=== PATIENT | female | born 1985 | race Caucasian/White ===

== ENCOUNTER 2017-12-11 12:55 | Emergency (ER) | payer OTHER ==
[2017-12-11] MEDS ORDERED: TDAP ADULT 0.5 ML INJ (BOOSTRIX) IM ONE (13:05)
--- NOTE | 2017-12-11 13:47 | EDPHY ---
H & P Time Seen by Provider: 12/11/17 13:00 HPI/ROS: CHIEF COMPLAINT: Laceration of the left knee with direct blow, from fall while practicing skiing HISTORY OF PRESENT ILLNESS: This is a 32-year-old female who is from [place]. She was tempted take a lesson to learn had a ski at a local indoor facility that has some form of plastic material as irrigated with water to allow to minimize friction thereby she can slide down. The the plastic material is anchored by screws which evidently were extending above and that is what she actually struck when she took a fall. She describes falling forward without it was significant twisting mechanism and notes that she has pain over the anterior portion of the knee not really laterally. She has since walked both at the facility and here into the but our facility as well as the parking lot. Fortunately this was a left knee injury and she did have a automatic transmission. However with walking she did not feel any untoward laxity to the knee. It generally feels stiff and achy She does have a remote history of problems with both knees and multiple joints which she characterizes being loose. However she has never had any knee surgery. REVIEW OF SYSTEMS: Constitutional - no fevers or chills Musculoskeletal - see above Integument -see above Neurological - no numbness, tingling, or paresthesias. . Smoking Status: Never smoked Physical Exam: General Appearance: Alert, no distress. Afebrile. Extremities: The neurovascular status is intact to left lower extremity. Cap refill is intact. On the area overlying the patella there is a full -thickness wound to the anterior portion of the knee on the upper lateral area overlying the kneecap which is likely into the bursa. I have examined her leggings and indeed there is a laceration leggings although he does not appear to have any missing material. With respect to the knee itself: Collateral ligaments intact Anterior drawer negative Negative Josse's No fluid, no effusion I am able to bend the knee to 90 though it feels stiff and it makes the soft tissue swelling present overlying laceration more notable. Neurological: NV intact. Skin: Skin is intact. Warm and dry, no rashes. no lymphangitis. . Constitutional: Initial Vital Signs Temperature (C) 36.5 C 12/11/17 13:02 Heart Rate 95 12/11/17 13:02 Respiratory Rate 18 12/11/17 13:02 Blood Pressure 131/76 H 12/11/17 13:02 O2 Sat (%) 96 12/11/17 13:02 O2 Delivery Mode Room Air Allergies/Adverse Reactions: adhesive tape Allergy (Verified 12/11/17 13:01) codeine Allergy (Verified 12/11/17 13:01) hydrocodone Allergy (Verified 12/11/17 13:01) Home Medications: Medication Instructions Recorded ZYRTE 12/11/17 Medical Decision Making - Diagnostics Imaging Results: Imaging Impressions Knee X-Ray 12/11/17 13:05 Impression: 1. No definite fracture of the left knee. 2. Soft tissue swelling without definite joint effusion. ED Course/Re-evaluation: Laceration over the knee on the upper lateral pole is full-thickness however is only 1 cm and does not gape. I am concerned for contagion of the bursa thereby will go ahead and have the tech irrigate. Utilizing sterile technique and Chloraseptic prep the wound itself was anesthetized with 1% xylocaine with epinephrine. She tolerated this well. Subsequently irrigation was ensued. I have discussed the fact that it is not gaping significantly and I am concerned for infection thereby wound closure with Steri-Strips her david when increased risk and not be necessary at this point in time and will be ill advised. Structurally, I do not sign any laxity to the collateral cruciate ligaments thus would consider this to be a contusion expect prompt resolution with the next week. Therefore, there does not appear to be any internal derangement of the knee whereby it is evident that she has a contusion and laceration on the outside. Differential Diagnosis: The differential diagnosis includes but is not limited to: Fracture, Sprain, Strain, Dislocation, Nerve injury, Contusion, laceration - Data Points Medications Given: Discontinued Medications Diphtheria/Tetanus/Acell Pertussis (Boostrix) 0.5 ml IM .ONCE ONE Stop: 12/11/17 13:06 Last Admin: 12/11/17 13:58 Dose: Not Given Departure - Departure Disposition: Home, Routine, Self-Care Clinical Impression: Contusion of knee and lower leg Qualifiers: Encounter type: initial encounter Laterality: left Qualified Code(s): S80.02XA - Contusion of left knee, initial encounter Laceration of leg Qualifiers: Encounter type: initial encounter Laterality: left Qualified Code(s): S81.812A - Laceration without foreign body, left lower leg, initial encounter Condition: Good Instructions: Laceration (ED), Knee Pain (ED) Additional Instructions: Keep this clean and dry Tylenol and Advil works well together the combination: Tylenol 1000 mg and 600 mg every 8 hours as needed for the pain. Call later for follow-up with Orthopedics. Crutches as needed. Referrals: AYSE MIRANDA [Primary Care Provider] - As per Instructions Jameson Briceno MD [Medical Doctor] - As per Instructions
[2017-12-11 14:19] VITALS: BP 119/68
== END 2017-12-11 14:22 | disposition home or self-care (01) ==
LOC: CED 12:55
DX: S81.012A Laceration without foreign body, left knee, initial encounter (principal); Z23 Encounter for immunization; W10.2XXA Fall (on)(from) incline, initial encounter; Y93.23 Activity, snow (alpine) (downhill) skiing, snowboarding, sledding, tobogganing and snow tubing; Y92.838 Other recreation area as the place of occurrence of the external cause
CPT/HCPCS: 73564-PO